=== PATIENT | female | born 1945 | race Caucasian/White ===

== ENCOUNTER → 2016-07-10 | Outpatient (CLI) | payer MEDICARE, OTHER ==
[2015-05-14 08:19] VITALS: BP 120/84
[~2016-07-10] MED LIST: ASPI81TA2 PO; CALCIUM; ESTR1TAB17 PO; GLUC100018 PO; LEVO50TA PO; MULT-208 PO; OMEG1CAP38 PO; SIMV40TA PO
--- NOTE | 2016-07-10 09:40 | KCIC ---
PROCEDURE MRI right knee without contrast. HISTORY Right knee pain and swelling. Twisting injury. TECHNIQUE MRI of the right knee was performed without intravenous contrast. FINDINGS The anterior cruciate ligament and posterior cruciate ligament are intact. The medial collateral ligament and lateral collateral ligament complex are intact. The extensor mechanism and patellar retinacula are intact. There is a complex tear of the lateral meniscus diffusely. The body and posterior horn are small, suggesting prior partial meniscectomy. No displaced fragment is identified. There is a predominantly longitudinal tear of the posterior horn of the medial meniscus. The medial meniscal root also appears small suggesting partial meniscectomy. Cartilage loss reaches full thickness along the lateral femoral condyle posteriorly and along the posterior aspect of the weightbearing portion. There is partial-thickness cartilage loss elsewhere in the lateral compartment. It is near full thickness along the posterior weightbearing portion of the medial femoral condyle. The patellofemoral articular cartilage is mostly preserved. There is a small joint effusion. There are ganglia along the superior aspect of the joint capsule medially and posteriorly. There are 2 main lobules connected by a thin isthmus. One posteriorly measures 1 centimeter. Another medially measures 1.3 centimeters. They span 3.8 centimeters in combination. IMPRESSION - Complex tear of the lateral meniscus diffusely. The lateral meniscal body and posterior horn are small suggesting prior partial meniscectomy. - Predominantly longitudinal tear of the posterior horn of the medial meniscus. There also appear to be changes of partial medial meniscectomy along the posterior horn. - Cartilage loss is full thickness posteriorly in the lateral compartment, and near full thickness posteriorly in the medial compartment. - A ganglion along the superior aspect of the joint capsule posteriorly and medially spans 3.8 centimeters across two lobules, each of which measures up to 1.3 centimeters. - Small joint effusion. Electronically signed by: Juan Diego Randolph (Jul 10, 2016 09:38:58)
== END | disposition home or self-care (01) ==
LOC: KCIC MRI 08:21
PROVIDERS: ATTEND Orthopaedic Surgery
DX: M25.561 Pain in right knee (principal); M25.641 Stiffness of right hand, not elsewhere classified; M67.461 Ganglion, right knee
CPT/HCPCS: 73721

== ENCOUNTER 2016-09-04 11:43 | Day surgery (SDC) | payer MEDICARE, OTHER ==
[~2016-09-04] VITALS: Ht 157.5 cm; Wt 63.0 kg
[~2016-09-04 11:43] MED LIST changes: +IV RINGERS,LACTATED 1000ML 1,000 ML IV SCH; +LIDOCAINE 1% 1 ML SYRINGE. ID PRN; +ONDANSETRON PF 4 MG/2 ML VIAL. IV PRN; +PROCHLORPERAZINE 10 MG/2 ML VIAL. IV PRN; +fentaNYL PF VIAL 100 MCG/2 ML VIAL IV PRN
[2016-09-04] MEDS ORDERED: BUPIVACAINE MPF 0.5% 30 ML VIAL. ONE (14:27)
[2016-09-04] MEDS ORDERED: LIDOCAINE 2% 100 MG/5 ML SYRINGE. ONE (14:28)
[2016-09-04] MEDS ORDERED: PROPOFOL 20 ML IV ONE (14:28)
[2016-09-04] MEDS ORDERED: FAMOTIDINE 20 MG/2 ML VIAL ONE (14:28)
[2016-09-04] MEDS ORDERED: ONDANSETRON PF 4 MG/2 ML VIAL. ONE (14:28)
[2016-09-04] MEDS ORDERED: DEXAMETHASONE SOD PHOS 20 MG/5 ML VIAL. ONE (14:28)
[2016-09-04] MEDS ORDERED: fentaNYL PF VIAL 100 MCG/2 ML VIAL ONE (14:31)
--- NOTE | 2016-09-04 14:37 | DISCH ---
DISCHARGE INSTRUCTIONS Condition on Discharge Condition on Discharge: Stable Activity After Discharge Activity Instructions for Disc: Activity as tolerated Weight Bearing Status after Di: As tolerated Diet after Discharge Diet after Discharge: Regular Wound Incision Care Wound/Incision Care: Change dressing Other wound/incision instructi: remove dressing in 2 days august then shower Contacting the DR. after DC Call your doctor for: Concerns you may have Follow-Up Follow up with: Tobias 7-10 days Treatment/Equipment after DC Adaptive Equipment Issued: Fan (has access at home) TODD JUDD MD September 04, 2016 14:37
[2016-09-04] MEDS ORDERED: SEVOFLURANE 31 TO 60 MINUTES. IH ONE (15:23)
--- NOTE | 2016-09-04 15:38 | PDOC ---
BRIEF OPERATIVE NOTE Date: September 04, 2016 Pre-Op Diagnosis meniscal tear Post-Op Diagnosis same medial and lateral Procedure Performed right knee scope, partial medial and lateral menisectomies Surgeon Tobias Anesthesia Type: General Blood Loss 5cc Findings above Complications none TODD JUDD MD September 04, 2016 15:38
[2016-09-04] MEDS ORDERED: TAPE100T3 PO (16:06)
[2016-09-04 16:30] VITALS: BP 121/71
--- NOTE | 2016-09-05 09:09 | OP ---
DATE OF SURGERY: 09/04/2016 PREOPERATIVE DIAGNOSIS: Meniscal tear. POSTOPERATIVE DIAGNOSES: Meniscal tear with medial and lateral meniscal tears and some chondral flap damage on medial femoral condyle. PROCEDURES: Right knee arthroscopy, partial medial and lateral meniscectomies and chondroplasty, medial femoral condyle. SURGEON: Phill Collado M.D. ANESTHESIA: General. ESTIMATED BLOOD LOSS: 5 mL. COMPLICATIONS: None. OPERATIVE INDICATIONS: The patient had sudden onset of knee pain, worse with twisting and pivoting. MRI confirmed the clinical suspicion of a meniscal tear. I had gone over with her that often arthroscopic treatment can treat the mechanical aspects of this injury, but will not undo any degenerative type changes. She says this is fine as her symptoms are sudden in onset and understands the limitations of the procedure including the risks of possible infection, nerve or blood vessel damage, medical or other anesthetic complications among others. All her questions were answered. Consent was obtained and she agrees to proceed with operative evaluation and treatment. OPERATIVE TECHNIQUE: The patient was identified, procedure verified, patient placed in the supine position on the operating table. After adequate amounts of general endotracheal anesthesia were administered, right lower extremity was prepped and draped in standard sterile fashion with a thigh tourniquet placed in the arthroscopic leg rg. After timeout was performed, the patient and procedure identified and verified. The right lower extremity was exsanguinated by Esmarch bandage. Tourniquet inflated to 250 mmHg. Lateral portal was established, medial portal established using spinal needle localization and the knee joint was systematically examined. She was noted to have tear of a posterior horn of medial meniscus which was trimmed back to stable tissue with arthroscopic punch and shaver. Lateral meniscus was likewise noted to have some free edge tearing which was in the body and posterior horn area debrided back to stable tissue with the arthroscopic punch and shaver. Chondroplasty was accomplished in the medial and lateral femoral condyles as well due to some chondral flap tearing. No full thickness defect was noted. Any of small loose pieces of cartilage were retrieved with arthroscopic shaver through same portals in the gutter areas and the knee was drained of arthroscopic fluid. Portals closed with nylon suture. Sterile dressings were applied. The patient was extubated and transferred to postop holding in stable condition having tolerated the procedure well. Knee was infused prior to dressing with 20 mL of 0.5% plain Marcaine. PHILL COLLADO MD DR: KRISTEN/yenny JOB#: [id number] / [id number] BUNNY Stein MD
== END 2016-09-04 17:15 | disposition home or self-care (01) ==
LOC: SURG 11:43
PROVIDERS: ATTEND Orthopaedic Surgery
DX: S83.241A Other tear of medial meniscus, current injury, right knee, initial encounter (principal); S83.281A Other tear of lateral meniscus, current injury, right knee, initial encounter; X58.XXXA Exposure to other specified factors, initial encounter; Y93.9 Activity, unspecified; Y92.9 Unspecified place or not applicable; Y99.9 Unspecified external cause status; E78.00 Pure hypercholesterolemia, unspecified; M19.90 Unspecified osteoarthritis, unspecified site; E03.9 Hypothyroidism, unspecified; Z72.89 Other problems related to lifestyle; Z96.641 Presence of right artificial hip joint; Z90.49 Acquired absence of other specified parts of digestive tract
CPT/HCPCS: 29880; J0690; J1100; J2405; J2704; J3010; J3490; S0028

== ENCOUNTER → 2016-12-20 | Day surgery (SDC) | payer MEDICARE, OTHER ==
[~2016-12-20] MED LIST changes: +ASPI-630 PO; -ASPI81TA2 PO; +PROPOFOL 20 ML IV ONE; +TAPE100T7 PO
[2016-12-20 07:42] VITALS: BP 134/79
--- NOTE | 2016-12-21 07:46 | PREOP HP ---
DATE OF SERVICE: 12/20/2016 REASON: Recurrent dysphagia with eosinophilic esophagitis. HISTORY OF PRESENT ILLNESS: A 71-year-old female whose past medical history is significant for hypothyroidism, hyperlipidemia, osteoporosis, history of organic heart disease, status post stents, seen with recurrent dysphagia mainly for solids in the substernal location. She has been on a modified diet with avoidance of wheat and dairy with reasonable control until recently when the food began to stick again. No change in weight or appetite and no bleeding. Previous dilatation did help and she is here today for repeat dilatation. PAST MEDICAL HISTORY: Organic heart disease, hypertension, status post stenting, hyperlipidemia, eosinophilic esophagitis, osteoporosis. PAST SURGICAL HISTORY: Significant for thyroidectomy, tonsillectomy, tubal ligation, hysterectomy. ALLERGIES: SULFA, CODEINE, ERYTHROMYCIN, HYDROCODONE, OXYCODONE, PSEUDOEPHEDRINE AND TRAMADOL. SOCIAL HISTORY: She is not a smoker. She is a social drinker. FAMILY HISTORY: Significant for diabetes in grandmother. REVIEW OF SYSTEMS: Per records. PHYSICAL EXAMINATION: GENERAL: Reveals a well-nourished, well-developed female. VITAL SIGNS: Afebrile. Pulse 66, respirations 20. HEENT: Normocephalic and atraumatic head. Pupils and extraocular muscles not tested. Sclerae anicteric. NECK: Supple. LUNGS: Clear. CARDIOVASCULAR: Reveals S1, S2 without S3, S4 or appreciable murmur. ABDOMEN: Soft abdomen, normal bowel sounds, without appreciable hepatosplenomegaly. EXTREMITIES: Reveals no cyanosis, clubbing or edema. IMPRESSION: Recurrent dysphagia with eosinophilic esophagitis, most likely secondary to recurrent stricture. Therefore, recommend upper endoscopy with possible biopsy and dilatation. Risks and benefits have been discussed. The patient is willing to proceed at this time. LIVE CARTWRIGHT MD DR: CAROLINA/yenny JOB#: [id number] / [id number]
== END | disposition home or self-care (01) ==
LOC: ENDOS 05:49
PROVIDERS: ATTEND Internal Medicine Gastroenterology
DX: K20.0 Eosinophilic esophagitis (principal); K29.50 Unspecified chronic gastritis without bleeding; I25.10 Atherosclerotic heart disease of native coronary artery without angina pectoris; I50.9 Heart failure, unspecified; E78.00 Pure hypercholesterolemia, unspecified; E03.9 Hypothyroidism, unspecified; M19.90 Unspecified osteoarthritis, unspecified site; Z86.718 Personal history of other venous thrombosis and embolism; Z87.39 Personal history of other diseases of the musculoskeletal system and connective tissue; Z72.89 Other problems related to lifestyle; Z88.6 Allergy status to analgesic agent; Z88.1 Allergy status to other antibiotic agents; Z88.2 Allergy status to sulfonamides
CPT/HCPCS: 43235; 43450; J2704

== ENCOUNTER → 2020-12-09 | Outpatient (CLI) | payer MEDICARE, OTHER ==
[2016-12-20 07:42] VITALS: BP 134/79
[~2020-12-09] MED LIST changes: +DENO60DI SQ; -IV RINGERS,LACTATED 1000ML 1,000 ML IV SCH; -LIDOCAINE 1% 1 ML SYRINGE. ID PRN; -ONDANSETRON PF 4 MG/2 ML VIAL. IV PRN; -PROCHLORPERAZINE 10 MG/2 ML VIAL. IV PRN; -PROPOFOL 20 ML IV ONE; -fentaNYL PF VIAL 100 MCG/2 ML VIAL IV PRN
--- NOTE | 2020-12-09 16:37 | KCIC ---
EXAM: MRI LEFT WRIST DATE: 12/09/2020 1:20 PM CLINICAL HISTORY: Reason: LEFT WRIST PAIN / Spl. Instructions: / History: Left wrist pain after a f all 7 weeks ago, not improving. COMPARISON: None. TECHNIQUE: Multiplanar, multisequence MR imaging of the left wrist was performed without IV contrast. FINDINGS: Nondisplaced fracture through the triquetrum with moderate associated marrow edema. Thumb CMC DJD and triscaphe DJD with chondral effacement and subchondral cystic change. The scapholunate or lunotriquetral ligaments are intact. The TFC disc is grossly intact. The radial, foveal and styloid attachments are intact. Increased signal and thickening of the extensor carpi ulnaris at the ulnar styloid. Otherwise the vis ualized flexor and extensor tendons are intact, normal in signal and morphology. No tenosynovitis. Visualized medial and ulnar nerves are normal in signal and morphology. No abnormal bowing of the fle xor retinaculum. Distal radial ulnar joint effusion. No fracture or osteonecrosis. IMPRESSION: 1. Nondisplaced triquetral fracture with moderate associated marrow edema. 2. Mild extensor carpi ulnaris tendinosis. Electronically signed by: Fernandez Owen MD (12/09/2020 4:35 PM) ATIF
== END ==
LOC: KCIC MRI 13:02
PROVIDERS: ATTEND Orthopaedic Surgery
DX: S62.102A Fracture of unspecified carpal bone, left wrist, initial encounter for closed fracture (principal); M25.432 Effusion, left wrist; M77.8 Other enthesopathies, not elsewhere classified; R26.9 Unspecified abnormalities of gait and mobility; X58.XXXA Exposure to other specified factors, initial encounter; Y93.89 Activity, other specified; Y92.89 Other specified places as the place of occurrence of the external cause; Y99.8 Other external cause status
CPT/HCPCS: 73221

== ENCOUNTER → 2020-12-09 | Outpatient (CLI) | payer MEDICARE, OTHER ==
[2016-12-20 07:42] VITALS: BP 134/79
[~2020-12-09] MED LIST changes: +GADOTERATE 7.5 MMOL/15ML VIAL. IVP ONE
--- NOTE | 2020-12-09 16:41 | KCIC ---
Exam Date: 12/09/2020 2:20 PM MRI BRAIN WO+W Indication: Reason: UNSTEADY GAIT / Spl. Instructions: Sx progressing for 2 yrs. 12cc Clariscan / His tory: Pt states changes in personality, incontinence, loss of train of thought.. TECHNIQUE: Routine multiplanar MR images of the brain were obtained without and with intravenous con trast. FINDINGS: The ventricles and sulci are prominent consistent with cerebral volume loss. Abnormal T2/FLAIR signa l in the periventricular and subcortical white matter bilaterally is consistent with microvascular di sease. There is no mass effect, midline shift, extra axial collection, or acute intracranial hemorrh age. There is no diffusion abnormality to suggest acute infarction. The flow voids at the base of t he brain are within normal limits. The visualized paranasal sinuses, orbits and mastoid air cells ar e within normal limits. No lesion of the skull base or calvarium is seen. No abnormal contrast enha ncement is seen. IMPRESSION: No evidence for acute intracranial pathology. Volume loss and microvascular disease. Electronically signed by: Elijah Cohn MD (12/09/2020 4:39 PM) [id number]
== END ==
LOC: KCIC MRI 13:08
PROVIDERS: ATTEND Physician Assistant
DX: R26.89 Other abnormalities of gait and mobility (principal); R32 Unspecified urinary incontinence; Z98.890 Other specified postprocedural states
CPT/HCPCS: 70553; 82565; A9575